=== PATIENT | male | born 1990 | race Caucasian/White ===

== ENCOUNTER 2017-09-19 07:24 | Day surgery (SDC) | payer BC, OTHER ==
[~2017-09-19] VITALS: Ht 177.8 cm; Wt 132.1 kg
[~2017-09-19 07:24] MED LIST: ALLOPURINOL PO; BENAZEPRIL PO
[2017-09-19 07:30] VITALS: BP 137/82; PULSE 76; RESP 16; Ht 177.8 cm; Wt 132.1 kg
[2017-09-19] MEDS ORDERED: SERT50TA PO (07:52)
[2017-09-19] MEDS ORDERED: METO-319 PO (07:53)
[2017-09-19] MEDS ORDERED: BENA10TA48 PO (07:53)
[2017-09-19] MEDS ORDERED: ATOR10TA65 PO (07:54)
[2017-09-19] MEDS ORDERED: CIPROFLOXACIN 400 MG in D5W 200 ML IVPB SCH (09:00)
[2017-09-19] MEDS ORDERED: IOHEXOL 300MG/ML 30 ML BTL ONE (09:38)
[2017-09-19 10:05] VITALS: BP 127/69; PULSE 72; RESP 18
--- NOTE | 2017-09-19 13:38 | HP ---
DATE OF ADMISSION: 09/19/2017 HISTORY OF PRESENT ILLNESS: A 27-year-old morbidly obese male with a history of significant nephrol ithiasis who presents today for right extracorporeal shockwave lithotripsy. 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 Previous CT scan d emonstrates a left staghorn stone filling out the left inferior pole, left midpole and left renal pe lvis and stone burden in the upper pole. On the right side, he has an 11 x 9 mm nonobstructing ston e. He presents today for right extracorporeal shockwave lithotripsy prior to intervention on the le ft side. The patient is having unremitting left pain requiring narcotics and shows to me today a vi storm on his urination. When he is voiding, he is passing gross hematuria with clots. This has been now on and off. Today, he is not having any gross hematuria. Due to his significant amount of pain on the left side and presumptive concern that he is bleeding actively on the left side, right extra corporeal shockwave lithotripsy is being placed on hold so that he may proceed with intervention on the left side prior to the right side. PAST MEDICAL HISTORY: Hypertension, nephrolithiasis, hypercholesterolemia. PAST SURGICAL HISTORY: Status post left laparoscopic stone extraction, carpal tunnel surgery, hand surgery. ALLERGIES: NO KNOWN DRUG ALLERGIES. PHYSICAL EXAMINATION: LUNGS: Good breath sounds bilaterally. HEART: Regular rate and rhythm. ABDOMEN: Soft, nondistended, nontender, no palpable masses, flank, no CVA tenderness or masses. IMPRESSION: Bilateral nephrolithiasis, gross hematuria recalcitrant pain. PLAN: As per patient, I have written him a prescription for [place] 5/325 one tab p.o. q.6h. p.r.n., dispense #30, no refill. He will follow up in the office for counseling of left-sided surgery prio r to his right. In light of prior intervention and stone burden filling up the mid pole and lower p ole and renal pelvis associated with malrotated kidney and morbid obesity, we will have the patient evaluated for robotic nephrolithotomy. He is stable today and will follow up as soon as possible. All questions have been answered. Dictated By: LINDA SALGUERO/NTS Conf#: [id number] [facility]#: [id number]
[2017-09-20] MEDS ORDERED: INFLUENZA VIRUS VACCINE 0.5 ML SYG IM* ONE (09:00)
== END 2017-09-19 10:25 | disposition home or self-care (01) ==
LOC: SDS 07:24
PROVIDERS: ATTEND Urology
DX: N20.0 Calculus of kidney (principal); Z53.9 Procedure and treatment not carried out, unspecified reason
CPT/HCPCS: Q9967

== ENCOUNTER 2018-07-03 20:15 | Inpatient (IN) | END 2018-07-10 23:41 | disposition home or self-care (01) | DRG 660 ==